=== PATIENT | male | born 1990 | race Two or more races ===

== ENCOUNTER 2019-12-03 19:21 | Emergency (ER) | payer OTHER ==
[~2019-12-03] VITALS: Ht 180.3 cm; Wt 78.9 kg
[2019-12-03 19:22] VITALS: BP 133/81
== END 2019-12-03 20:37 | disposition home or self-care (01) ==
LOC: M ED 19:21
DX: F41.9 Anxiety disorder, unspecified (principal); F17.290 Nicotine dependence, other tobacco product, uncomplicated

== ENCOUNTER 2021-11-09 22:03 | Emergency (ER) | payer OTHER ==
[~2021-11-09] VITALS: Ht 177.8 cm; Wt 84.1 kg
[2021-11-10 04:05] VITALS: BP 130/58
[2021-11-10] MEDS ORDERED: BACITRACIN OINTMENT 30GM TUBE TOP ONE (06:35)
== END 2021-11-10 09:00 | disposition home or self-care (01) ==
LOC: M ED 22:03
DX: S90.821A Blister (nonthermal), right foot, initial encounter (principal); S90.822A Blister (nonthermal), left foot, initial encounter; X58.XXXA Exposure to other specified factors, initial encounter; Y92.89 Other specified places as the place of occurrence of the external cause; Z59.00 Homelessness unspecified